=== PATIENT | female | born 2000 | race Two or more races ===

== ENCOUNTER 2022-09-19 04:28 | Emergency (ER) | payer MEDICAID ==
[~2022-09-19] VITALS: Ht 165.1 cm; Wt 102.0 kg
[2022-09-19 06:14] LABS: Urine Bacteria FEW /hpf (None Seen); Urine Blood Negative /uL (Negative); Urine Hyaline Cast FEW /lpf (0 - 2); Urine Mucus FEW (None Seen); Urine Specific Gravity 1.034 (1.001-1.035); Urine WBC 6 /hpf (0 - 5)
[2022-09-19] MEDS ORDERED: KETOROLAC TROMETH 60MG/2ML VIAL IM ONE (06:45)
[2022-09-19 07:14] VITALS: BP 102/60
[2022-09-19] MEDS ORDERED: BACDST PO (07:48)
[2022-09-19] MEDS ORDERED: TRAM-297 PO (07:48)
== END 2022-09-19 07:57 | disposition home or self-care (01) ==
LOC: ER 04:28
DX: N83.202 Unspecified ovarian cyst, left side (principal); N83.201 Unspecified ovarian cyst, right side; N39.0 Urinary tract infection, site not specified; J45.909 Unspecified asthma, uncomplicated; Z79.899 Other long term (current) drug therapy; Z88.8 Allergy status to other drugs, medicaments and biological substances
CPT/HCPCS: 76856; 81001; 81025; 96372; 99284; J1885

== ENCOUNTER 2023-02-16 13:53 | Emergency (ER) | payer MEDICAID ==
[~2023-02-16] VITALS: Ht 165.1 cm; Wt 102.5 kg
[~2023-02-16 13:53] MED LIST: BACDST PO; TRAM-297 PO
[2023-02-16 14:28] LABS: Urine Bacteria NONE SEEN /hpf (None Seen); Urine Blood 2+ /uL (Negative); Urine Mucus MANY (None Seen); Urine WBC 3 /hpf (0 - 5)
[2023-02-16 14:42] LABS: Basophils # (auto) 0 10 ^3/uL (0-0.2); Basophils % (auto) 0.8 % (0.0-2.0); Eosinophils # (auto) 0.1 10 ^3/uL (0-0.8); Eosinophils % (auto) 1.7 % (0.0-7.0); Hematocrit 43.4 % (36.0-46.0); Hemoglobin 14.5 g/dL (12.2-16.2); Lymphocytes # (auto) 1.8 10 ^3/uL (0.4-5.4); Lymphocytes % (auto) 29.1 % (10.0-50.0); Mean Corpuscular Hemoglobin 28.6 pg (28.0-32.0); Mean Corpuscular Hgb Conc. 33.5 g/dL (32.0-36.0); Mean Corpuscular Volume 85.5 fL (80.0-100.0); Monocytes # (auto) 0.3 10 ^3/uL (0-1.3); Monocytes % (auto) 4.6 % (0.0-12.0); Neutrophils # (auto) 3.9 10 ^3/uL (1.6-8.6); Neutrophils % (auto) 63.8 % (37.0-80.0); Red Blood Cells 5.07 10^6/uL (4.0-5.20); Red Cell Distribution Width 13.3 % (11.8-14.3); White Blood Cell 6.2 10^3/uL (4.4-10.8)
[2023-02-16 15:02] LABS: Albumin 3.5 g/dL (3.4-5.0); Calcium 8.7 mg/dL (8.5-10.1); Potassium 3.9 mmol/L (3.5-5.1)
[2023-02-16 15:07] LABS: BUN/Creatinine Ratio 7.6 (10.0-20.0); Bilirubin, Total 0.5 mg/dL (0.2-1.0)
[2023-02-16] MEDS ORDERED: ONDANSETRON ODT 4 MG TAB PO ONE (19:00)
[2023-02-16] MEDS ORDERED: MORPHINE SULFATE INJ 2 MG/ml SYRG IM ONE (19:00)
[2023-02-16] MEDS ORDERED: ACE3T PO (19:09)
[2023-02-16] MEDS ORDERED: MORPHINE SULFATE 4 MG/ML SYR/VIAL ONE (19:36)
[2023-02-16 20:23] VITALS: BP 109/73
== END 2023-02-16 20:31 | disposition home or self-care (01) ==
LOC: ER 13:53
DX: N83.202 Unspecified ovarian cyst, left side (principal); N83.201 Unspecified ovarian cyst, right side; J45.909 Unspecified asthma, uncomplicated; Z88.6 Allergy status to analgesic agent
CPT/HCPCS: 36415; 76856; 80053; 81001; 81025; 85025; 96372; 99285; J2270; Q0162

== ENCOUNTER 2023-03-05 01:01 | Inpatient (IN) | payer MEDICAID ==
[~2023-03-05] VITALS: Ht 165.1 cm; Wt 106.9 kg
[~2023-03-05 01:01] MED LIST changes: +ACE3T PO
[2023-03-05] MEDS ORDERED: HYDROmorphone HCL 2 MG/ML VL/or syr IM ONE (02:00)
[2023-03-05 02:20] LABS: Basophils # (auto) 0.1 10 ^3/uL (0-0.2); Basophils % (auto) 0.4 % (0.0-2.0); Eosinophils # (auto) 0.1 10 ^3/uL (0-0.8); Eosinophils % (auto) 0.4 % (0.0-7.0); Hematocrit 42.6 % (36.0-46.0); Hemoglobin 14.7 g/dL (12.2-16.2); Lymphocytes # (auto) 1.5 10 ^3/uL (0.4-5.4); Lymphocytes % (auto) 11.6 % (10.0-50.0); Mean Corpuscular Hemoglobin 29.2 pg (28.0-32.0); Mean Corpuscular Hgb Conc. 34.4 g/dL (32.0-36.0); Monocytes # (auto) 0.5 10 ^3/uL (0-1.3); Monocytes % (auto) 3.6 % (0.0-12.0); Neutrophils # (auto) 10.8 10 ^3/uL (1.6-8.6); Red Blood Cells 5.02 10^6/uL (4.0-5.20); White Blood Cell 12.8 10^3/uL (4.4-10.8)
[2023-03-05 02:29] LABS: Albumin 3.7 g/dL (3.4-5.0); Calcium 9.1 mg/dL (8.5-10.1); Potassium 3.7 mmol/L (3.5-5.1)
[2023-03-05 02:32] LABS: BUN/Creatinine Ratio 10.8 (10.0-20.0); Bilirubin, Total 0.3 mg/dL (0.2-1.0); Total Protein 7.4 g/dL (6.4-8.2)
[2023-03-05] MEDS ORDERED: ONDANSETRON HCL 4 MG/2 ML VIAL IV ONE ×2 (04:45→10:55)
[2023-03-05] MEDS ORDERED: MORPHINE SULFATE 4 MG/ML SYR/VIAL IV ONE ×2 (04:45→09:15)
[2023-03-05 05:12] LABS: Urine Amorphous Crystal MANY /hpf (None Seen); Urine Bacteria FEW /hpf (None Seen); Urine Blood Negative /uL (Negative); Urine Mucus FEW (None Seen); Urine Specific Gravity 1.028 (1.001-1.035); Urine WBC 2 /hpf (0 - 5)
[2023-03-05] MEDS ORDERED: METOCLOPRAMIDE HCL 5MG/ml INJ 2ml VIAL IV ONE (05:45)
[2023-03-05] MEDS ORDERED: HYDROmorphone HCL 2 MG/ML VL/or syr IV ONE (05:45)
[2023-03-05 06:23] LABS: INR 0.97 (0.9-1.15)
[2023-03-05] MEDS ORDERED: ceFAZolin 1GM/50ML 100 ML IV ONE (10:17)
[2023-03-05] MEDS ORDERED: ceFAZolin 1GM/50ML 50 ML IV ONE (10:21)
[2023-03-05] MEDS ORDERED: fentaNYL CITRATE 100 MCG/2 ML VL ONE (10:27)
[2023-03-05] MEDS ORDERED: MEPERIDINE HCL (50 MG/ML) 1 ML VIAL ONE (10:27)
[2023-03-05] MEDS ORDERED: MIDAZOLAM HCL 2MG/2ML 2ml VIAL (1mg/ml) ONE (10:27)
[2023-03-05] MEDS ORDERED: DexAMETHasone SOD PHOS 10MG/1ML VIAL INJ ONE (10:38)
[2023-03-05] MEDS ORDERED: PROPOFOL 10 MG/ML 20 ML IV ONE (10:40)
[2023-03-05] MEDS ORDERED: ROCURONIUM 10MG/ML 10ML VIAL IV ONE (10:42)
[2023-03-05] MEDS ORDERED: MORPHINE SULFATE 4 MG/ML SYR/VIAL IV PRN (11:00)
[2023-03-05] MEDS ORDERED: MIDAZOLAM HCL 2MG/2ML 2ml VIAL (1mg/ml) IV PRN (11:00)
[2023-03-05] MEDS ORDERED: ePHEDrine SULFATE 50 MG/ML AMP IV PRN (11:00)
[2023-03-05] MEDS ORDERED: ONDANSETRON HCL 4 MG/2 ML VIAL IV PRN (11:00)
[2023-03-05] MEDS ORDERED: LABETALOL HCL 5 MG/ML 4ML SYRINGE IV PRN (11:00)
[2023-03-05] MEDS ORDERED: SUGAMMADEX 200mg/2ml Vial (100MG/ML) IV ONE (11:55)
[2023-03-05] MEDS ORDERED: ACETAMINOPHEN 500 MG TAB PO PRN (12:00)
[2023-03-05] MEDS: HYDROmorphone HCL 2 MG/ML VL/or syr IV PRN ×4 (12:22→21:47)
[2023-03-05] MEDS ORDERED: ALBUTEROL SULF 2.5 MG/0.5ML(0.5%) NEB SOLN ONE (12:25)
[2023-03-05] MEDS ORDERED: ALBUTEROL SULF 2.5 MG/0.5ML(0.5%) NEB SOLN NEB ONE (12:30)
[2023-03-05] MEDS ORDERED: MEPERIDINE HCL (25 MG/ML) 1ML VIAL IV ONE (12:45)
[2023-03-05 14:30] VITALS: BP 113/57
[2023-03-05 14:54] LABS: Basophils # (auto) 0.1 10 ^3/uL (0-0.2); Basophils % (auto) 0.4 % (0.0-2.0); Eosinophils # (auto) 0.1 10 ^3/uL (0-0.8); Eosinophils % (auto) 0.4 % (0.0-7.0); Hematocrit 41.8 % (36.0-46.0); Hemoglobin 14.1 g/dL (12.2-16.2); Lymphocytes # (auto) 0.5 10 ^3/uL (0.4-5.4); Lymphocytes % (auto) 2.4 % (10.0-50.0); Mean Corpuscular Hemoglobin 28.5 pg (28.0-32.0); Mean Corpuscular Hgb Conc. 33.7 g/dL (32.0-36.0); Mean Corpuscular Volume 84.5 fL (80.0-100.0); Monocytes # (auto) 0.4 10 ^3/uL (0-1.3); Neutrophils # (auto) 18.4 10 ^3/uL (1.6-8.6); Neutrophils % (auto) 94.8 % (37.0-80.0); Nucleated Red Blood Cells % 0.1 %; Red Blood Cells 4.95 10^6/uL (4.0-5.20); Red Cell Distribution Width 13.1 % (11.8-14.3); White Blood Cell 19.4 10^3/uL (4.4-10.8)
[2023-03-05] MEDS ORDERED: DOCU-94 PO (15:09)
[2023-03-05] MEDS ORDERED: HYDR-4902 PO (15:09)
[2023-03-05] MEDS ORDERED: CEPH500T PO (15:09)
[2023-03-05 16:00] VITALS: BP 112/59
[2023-03-05] MEDS: LACTATED RINGER'S 1,000 ML IV SCH ×2 (18:36→18:37)
[2023-03-05] MEDS: ceFAZolin 1GM/50ML 50 ML IV SCH (18:37)
[2023-03-05 20:00] VITALS: BP 116/60
[2023-03-05 20:08] LABS: Basophils # (auto) 0 10 ^3/uL (0-0.2); Basophils % (auto) 0.1 % (0.0-2.0); Eosinophils # (auto) 0 10 ^3/uL (0-0.8); Hematocrit 42.1 % (36.0-46.0); Hemoglobin 13.8 g/dL (12.2-16.2); Lymphocytes # (auto) 0.6 10 ^3/uL (0.4-5.4); Lymphocytes % (auto) 3.5 % (10.0-50.0); Mean Corpuscular Hemoglobin 27.9 pg (28.0-32.0); Mean Corpuscular Hgb Conc. 32.8 g/dL (32.0-36.0); Mean Corpuscular Volume 84.9 fL (80.0-100.0); Monocytes # (auto) 0.5 10 ^3/uL (0-1.3); Monocytes % (auto) 3.2 % (0.0-12.0); Neutrophils # (auto) 15.4 10 ^3/uL (1.6-8.6); Neutrophils % (auto) 93.2 % (37.0-80.0); Nucleated Red Blood Cells % 0.2 %; Red Blood Cells 4.96 10^6/uL (4.0-5.20); Red Cell Distribution Width 13.1 % (11.8-14.3); White Blood Cell 16.6 10^3/uL (4.4-10.8)
[2023-03-05 22:00] VITALS: BP_SYST 116; BP_SYST 118; BP_DIAS 52; BP_DIAS 60
[2023-03-05] MEDS: ONDANSETRON HCL 4 MG/2 ML VIAL IV PRN (22:01)
[2023-03-06] MEDS: LACTATED RINGER'S 1,000 ML IV SCH ×3 (01:20→18:36)
[2023-03-06] MEDS: ONDANSETRON HCL 4 MG/2 ML VIAL IV PRN ×5 (01:56→22:53)
[2023-03-06] MEDS: HYDROmorphone HCL 2 MG/ML VL/or syr IV PRN ×2 (02:15→05:27)
[2023-03-06] MEDS: ceFAZolin 1GM/50ML 50 ML IV SCH ×3 (02:15→17:13)
[2023-03-06 05:19] LABS: Basophils # (auto) 0 10 ^3/uL (0-0.2); Basophils % (auto) 0.1 % (0.0-2.0); Eosinophils # (auto) 0 10 ^3/uL (0-0.8); Hematocrit 40.2 % (36.0-46.0); Hemoglobin 13.6 g/dL (12.2-16.2); Lymphocytes # (auto) 1.4 10 ^3/uL (0.4-5.4); Lymphocytes % (auto) 10.4 % (10.0-50.0); Mean Corpuscular Hemoglobin 28.9 pg (28.0-32.0); Mean Corpuscular Hgb Conc. 33.8 g/dL (32.0-36.0); Mean Corpuscular Volume 85.4 fL (80.0-100.0); Monocytes # (auto) 0.9 10 ^3/uL (0-1.3); Monocytes % (auto) 6.7 % (0.0-12.0); Neutrophils # (auto) 11.3 10 ^3/uL (1.6-8.6); Neutrophils % (auto) 82.8 % (37.0-80.0); Red Blood Cells 4.71 10^6/uL (4.0-5.20); Red Cell Distribution Width 13.1 % (11.8-14.3); White Blood Cell 13.6 10^3/uL (4.4-10.8)
[2023-03-06] MEDS ORDERED: LACTATED RINGER'S 1,000 ML IV SCH (06:45)
[2023-03-06 08:00] VITALS: BP 104/50
[2023-03-06] MEDS: DOCUSATE SOD 100 MG CAP PO SCH ×2 (08:35→21:50)
[2023-03-06 08:39] VITALS: BP 104/50
[2023-03-06] MEDS: HYDROcodone-ACET 10/325MG TAB PO PRN ×4 (09:46→22:52)
[2023-03-06] MEDS ORDERED: BISACODYL 5 MG EC TAB PO PRN (12:00)
[2023-03-06 13:00] VITALS: BP 112/60
[2023-03-06 17:00] VITALS: BP 100/53
[2023-03-06 20:00] VITALS: BP 97/36
[2023-03-06 22:00] VITALS: BP 97/36
[2023-03-07] VITALS (7 sets, daily range): BP systolic 88–108; BP diastolic 36–63
[2023-03-07] MEDS: ceFAZolin 1GM/50ML 50 ML IV SCH ×3 (02:03→17:35)
[2023-03-07] MEDS: HYDROcodone-ACET 10/325MG TAB PO PRN ×4 (05:52→21:21)
[2023-03-07] MEDS: ONDANSETRON HCL 4 MG/2 ML VIAL IV PRN ×4 (05:53→21:22)
[2023-03-07] MEDS: IPRATROPIUM BROM 0.5 MG/2.5ML INH SOL NEB PRN ×2 (06:01→21:19)
[2023-03-07] MEDS: ALBUTEROL SULF 2.5 MG/0.5ML(0.5%) NEB SOLN NEB PRN ×2 (06:01→21:19)
[2023-03-07] MEDS ORDERED: FUROSEMIDE 20 MG/2 ML VIAL IV ONE (08:00)
[2023-03-07] MEDS ORDERED: FUROSEMIDE 20 MG TAB ONE ×2 (08:07→08:08)
[2023-03-07] MEDS ORDERED: FUROSEMIDE 20 MG TAB PO ONE (08:15)
[2023-03-07] MEDS: DOCUSATE SOD 100 MG CAP PO SCH ×2 (09:34→21:35)
[2023-03-07] MEDS: SIMETHICONE 80 MG CHEWABLE TABLET PO SCH ×4 (09:34→21:35)
[2023-03-07] MEDS ORDERED: KETOROLAC TROMETH 30 MG/ML 1ML VIAL IV ONE (19:00)
[2023-03-08] MEDS: ceFAZolin 1GM/50ML 50 ML IV SCH ×3 (01:48→17:30)
[2023-03-08] MEDS: ONDANSETRON HCL 4 MG/2 ML VIAL IV PRN ×4 (03:55→21:34)
[2023-03-08] MEDS: HYDROcodone-ACET 10/325MG TAB PO PRN ×4 (03:56→21:33)
[2023-03-08] MEDS: LACTATED RINGER'S 1,000 ML IV SCH (04:02)
[2023-03-08 05:00] VITALS: BP 90/39
[2023-03-08] MEDS: SIMETHICONE 80 MG CHEWABLE TABLET PO SCH ×4 (05:23→21:33)
[2023-03-08 06:15] VITALS: BP 102/55
[2023-03-08 09:00] VITALS: BP 93/54
[2023-03-08] MEDS: DOCUSATE SOD 100 MG CAP PO SCH ×2 (09:32→21:33)
[2023-03-08 13:00] VITALS: BP 108/54
[2023-03-08 17:00] VITALS: BP 96/47
[2023-03-08 22:00] VITALS: BP 108/51
[2023-03-09] MEDS: ceFAZolin 1GM/50ML 50 ML IV SCH ×2 (02:40→09:25)
[2023-03-09 05:00] VITALS: BP 117/59
[2023-03-09] MEDS: SIMETHICONE 80 MG CHEWABLE TABLET PO SCH (05:19)
[2023-03-09] MEDS: HYDROcodone-ACET 10/325MG TAB PO PRN ×2 (05:36→10:36)
[2023-03-09] MEDS ORDERED: ONDA-144 PO (07:30)
[2023-03-09 09:00] VITALS: BP 94/43
[2023-03-09] MEDS: DOCUSATE SOD 100 MG CAP PO SCH (09:26)
== END 2023-03-09 11:10 | disposition home or self-care (01) | DRG 513 ==
LOC: ER 01:01 → OVERFLOW 12:01 → TELE-CENTR 14:05
PROVIDERS: ADMIT Obstetrics & Gynecology; ATTEND Obstetrics & Gynecology
PROC: 0UT10ZZ Resection of Left Ovary, Open Approach (ICD-10-PCS; 2023-03-05)
PROC: 0UT60ZZ Resection of Left Fallopian Tube, Open Approach (ICD-10-PCS; principal; 2023-03-05 10:29)
DX: N83.512 Torsion of left ovary and ovarian pedicle (principal); N83.202 Unspecified ovarian cyst, left side; Z88.8 Allergy status to other drugs, medicaments and biological substances
CPT/HCPCS: 36415; 74176; 76817; 76856; 80053; 81001; 81025; 84702; 85025; 85610; 86850; 86900; 86901; 94640; 96372; 96374; 96375; 99291; G0378; J0690; J1100; J2250; J2405; J2704

== ENCOUNTER 2024-08-25 23:24 | Emergency (ER) | payer MEDICAID ==
[~2024-08-25] VITALS: Ht 165.1 cm; Wt 95.2 kg
[~2024-08-25 23:24] MED LIST changes: +CEPH500T PO; +DOCU-94 PO; +HYDR-4902 PO; +ONDA-144 PO; +PANT40TA2 PO
[2024-08-26] MEDS: SODIUM CHLORIDE 0.9% 1,000 ML IV ONE (00:39)
[2024-08-26 01:00] LABS: Urine Bacteria None Seen /hpf (None Seen)
[2024-08-26] MEDS: METOCLOPRAMIDE HCL 5MG/ml INJ 2ml VIAL IV ONE (01:03)
[2024-08-26] MEDS: ACETAMINOPHEN IV 1000 MG/100ML (10MG/ML) IV STA (01:03)
[2024-08-26 01:11] VITALS: RESP 16; TEMP 99.2; O2SAT 99
[2024-08-26 01:12] LABS: Urine Blood 3+ /uL (Negative); Urine Budding Yeast OCCASIONAL /hpf (None Seen); Urine Clarity Clear (Clear); Urine Color Light-Yellow (Yellow); Urine Protein, UAD TRACE (Negative); Urine Specific Gravity 1.026 (1.001-1.035); Urine Urobilinogen Normal (Negative); Urine WBC 84 /hpf (0 - 5); Urine WBC Clumps PRESENT /hpf (None Seen)
[2024-08-26 01:14] LABS: Basophils # (auto) 0.1 10 ^3/uL (0-0.2); Basophils % (auto) 0.5 % (0.0-2.0); Eosinophils # (auto) 0.2 10 ^3/uL (0-0.8); Eosinophils % (auto) 1.7 % (0.0-7.0); Hematocrit 40.3 % (36.0-46.0); Hemoglobin 13.6 g/dL (12.2-16.2); Lymphocytes # (auto) 1.3 10 ^3/uL (0.4-5.4); Mean Corpuscular Hemoglobin 29.5 pg (28.0-32.0); Mean Corpuscular Hgb Conc. 33.9 g/dL (32.0-36.0); Mean Corpuscular Volume 87.3 fL (80.0-100.0); Monocytes # (auto) 0.5 10 ^3/uL (0-1.3); Monocytes % (auto) 5.4 % (0.0-12.0); Neutrophils % (auto) 79.4 % (37.0-80.0); Nucleated Red Blood Cells % 0.1 %; Platelet Count (auto) 293 10^3/uL (140-450); Red Blood Cells 4.62 10^6/uL (4.0-5.20); Red Cell Distribution Width 13.1 % (11.8-14.3)
[2024-08-26 01:16] LABS: Chloride 106 mmol/L (98-107); Potassium 3.8 mmol/L (3.5-5.1); Sodium 139 mmol/L (136-145)
[2024-08-26 01:18] LABS: Anion Gap 8 (5-15); Calcium 9.3 mg/dL (8.7-10.4); Carbon Dioxide 25 mmol/L (20-31)
[2024-08-26 01:23] LABS: BUN/Creatinine Ratio 15.7 (10.0-20.0); Blood Urea Nitrogen 11 mg/dL (9-23); Glucose 95 mg/dL (74-106)
[2024-08-26 01:42] VITALS: BP 99/53; PULSE 83
[2024-08-26 01:56] LABS: COVID19 ANTIGEN SOFIA FIA NEGATIVE (NEGATIVE); Rapid Influenza A Negative (Negative); Rapid Influenza B Negative (Negative)
== END 2024-08-26 01:46 | disposition home or self-care (01) ==
LOC: ER 23:24
DX: O90.89 Other complications of the puerperium, not elsewhere classified (principal); B34.9 Viral infection, unspecified; J45.909 Unspecified asthma, uncomplicated; Z79.899 Other long term (current) drug therapy; Z88.8 Allergy status to other drugs, medicaments and biological substances; Z20.822 Contact with and (suspected) exposure to COVID-19
CPT/HCPCS: 36415; 80048; 81001; 85025; 87426; 87804; 96361; 96374; 96375; 99284; J2765; J7030; J0131

== ENCOUNTER 2025-04-26 17:00 | Emergency (ER) | payer MEDICAID ==
[~2025-04-26] VITALS: Ht 165.1 cm; Wt 110.0 kg
--- NOTE | 2025-04-26 17:18 | ED.PDOC ---
General HPI Comments This is a 24 year old female presenting to the ED with chief complaint of flank pain. Patient reports that she has been experiencing right sided flank pain with associated radiation to her pelvic region and nausea for the past 3 days. Patient relays that she previously had her right ovary removed. Patient denies any vomiting, diarrhea, dysuria, hematuria, abdominal pain, fever, or chills. Time Seen by MD: 17:15 Primary Care Provider: GRISEL Reviewed notes: Nurses Notes, Medications, Allergies Allergies: Coded Allergies: Ibuprofen (Verified Allergy, Unknown, 09/19/22) Home Meds Active Scripts Ciprofloxacin Hcl (Cipro) 500 Mg Tab, 1 TAB PO BID, #14 TAB Prov:WINDY GOMEZ MD 04/26/25 Pantoprazole Sodium Sesquihydr (Protonix) 40 Mg Tab, 40 MG PO DAILY, #30 TAB Prov:LARRY SOL DO 03/19/23 Ondansetron (Zofran) 4 Mg Tab, 4 MG PO Q4HPRN PRN, #30 TAB Prov:MARC MUHAMMAD 03/09/23 Hydrocodone-Acetaminophen (Hydrocodone Bitartrate/AC 5-325 mg) 1 Tab Tab, 1 TAB PO Q6HPRN PRN for 6 Days, #24 TAB Prov:MARC MUHAMMAD 03/05/23 Docusate Sodium (Colace) 100 Mg Cap, 1 CAP PO BID, #60 CAP 2 Refills Prov:MARC MUHAMMAD 03/05/23 Cephalexin Monohydrate (Cephalexin) 500 Mg Tab, 500 MG PO QID for 7 Days, #28 TAB Prov:MARC MUHAMMAD 03/05/23 Acetaminophen W/ Codeine (Tylenol W/Cod #3) 1 Tab Tb, 1 TAB PO TID PRN, #20 TAB Prov:LAYNE VALLE 02/16/23 Tramadol Hcl (Ultram) 50 Mg Tab, 1 TAB PO Q6HR, #20 TAB Prov:TAY MULLIGAN 09/19/22 Sulfamethoxazole W/Trimethopri (Bactrim Ds Tablet) 1 Tab Tb, 1 TAB PO BID for 7 Days, #14 TAB Prov:TAY MULLIGAN 09/19/22 Information Source: Patient Mode of Arrival: Ambulatory Severity: Moderate Timing: Days Duration: Since onset Prehospital treatment: None Onset: Spontaneous Symptoms: Other (Flank pain, nausea) History of: None Location: Suprapubic, (R) Flank associated signs and symptoms: Nausea, Flank Pain Past Medical History PAST MEDICAL HISTORY: Asthma Surgical History (Other): Right oophorectomy, ovarian cyst removal MEDICAL DONATION PROFESSIONAL History: Ovarian Cysts Family History Family History: Reviewed,noncontributory to illness Social History Smoker: Non-Smoker Alcohol: Denies ETOH Use Drugs: Denies Drug Use Lives In: Home Constitutional: denies: chills, diaphoresis, fatigue, fever, malaise, sweats, weakness, others EENTM: denies: blurred vision, double vision, ear bleeding, ear discharge, ear drainage, ear pain, ear ringing, eye pain, eye redness, hearing loss, mouth pain, mouth swelling, nasal discharge, nose bleeding, nose congestion, nose pain, photophobia, tearing, throat pain, throat swelling, voice changes, others Respiratory: denies: cough, hemoptysis, orthopnea, SOB at rest, shortness of breath, SOB with excertion, stridor, wheezing, others Cardiovascular: denies: chest pain, dizzy spells, diaphoresis, Dyspnea on exertion, edema, irregular heart beat, left arm pain, lightheadedness, palpitations, PND, syncope, others Gastrointestinal: reports: nausea; denies: abdomen distended, abdominal pain, blood streaked bowels, constipated, diarrhea, dysphagia, difficulty swallowing, hematemesis, melena, poor appetite, poor fluid intake, rectal bleeding, rectal pain, vomiting, others Genitourinary: reports: flank pain; denies: abnormal vagina bleeding, burning, dyspareunia, dysuria, frequency, hematuria, incontinence, pain, , vagina discharge, urgency, others Neurological: denies: dizziness, fainting, headache, left sided numbness, left sided weakness, numbness, paresthesia, pre-existing deficit, right sided numbness, right sided weakness, seizure, speech problems, tingling, tremors, weakness, others Musculoskeletal: denies: back pain, gout, joint pain, joint swelling, muscle pain, muscle stiffness, neck pain, others Integumetry: denies: bruises, change in color, change in hair/nails, dryness, laceration, lesions, lumps, rash, wounds, others Allergic/Immunocompromised: denies: Difficulty Healing, Frequent Infections, Hives, Itching, others Hematologic/Lymphatic: denies: anemia, blood clots, easy bleeding, easy bruising, swollen glands, others Endocrine: denies: excessive hunger, excessive sweating, excessive thirst, excessive urination, flushing, intolerance to cold, intolerance to heat, unexplained weight gain, unexplained weight loss, others Psychiatric: denies: anxiety, bipolar disorder, depression, hopeless, panic disorder, schizophrenia, sleepless, suicidal, others All Other Systems: Reviewed and Negative Physical Exam General Appearance: No Apparent Distress HEENT: Normal ENT Inspection, Pharynx Normal, TMs Normal Neck: Full Range of Motion, Non-Tender, Normal, Normal Inspection Respiratory: Chest Non-Tender, Lungs Clear, No Accessory Muscle Use, No Respiratory Distress, Normal Breath Sounds Cardiovascular: No Edema, No JVD, No Murmur, No Gallop, Normal Peripheral Pulses, Regular Rate/Rhythm Breast Exam: Deferred Gastrointestinal: No Organomegaly, Non Tender, No Pulsatile Mass, Normal Bowel Sounds, Soft Genitalia: Deferred Pelvic: Deferred Rectal: Deferred Extremities: No calf tenderness, Normal capillary refill, Normal inspection, Normal range of motion, Non-tender, No pedal edema Musculoskeletal : Location: Right Extremity Location: Back Apperance: Tenderness: Mild Neurologic: Alert, market director II-XII nml as Tested, No Motor Deficits, Normal Affect, Normal Mood, No Sensory Deficits Cerebellar Function: Normal Reflexes: Normal Skin: Dry, Normal Color, Warm Lymphatic: No Adenopathy Was a procedure done? Was a procedure done?: No Differential Diagnosis Kidney stone (Female): Musculoskeletal pain, Renal failure, Strain, Urolithiasis X-Ray, Labs, Meds, VS Vital Signs Date Time Temp Pulse Resp B/P (MAP) Pulse Ox O2 Delivery O2 Flow Rate FiO2 04/26/25 17:23 98.5 64 16 113/73 (86) 97 98.5 Lab Test 04/26/25 18:07 Range/Units Urine Color Yellow Yellow Urine Clarity Turbid H Clear Urine pH 5.5 5.0-9.0 Urine Specific [place] 1.030 1.001-1.035 Urine Protein Trace H Negative Urine Ketones Negative Negative Urine Blood Negative Negative /uL Urine Nitrite Negative Negative Urine Bilirubin Negative Negative Urine Urobilinogen Normal Negative mg/dL Urine Leukocyte Esterase 2+ Negative /uL Urine RBC 4 0 - 4 /hpf Urine Microscopic WBC 9 H 0-5 /HPF Urine Squamous Epithelial Cells Mod <5 /hpf Urine Bacteria None seen None Seen /hpf Urine Mucus Few None Seen Urine Glucose Normal Normal mg/dL Urine Test Negative Negative CAT scan of the abdomen and pelvis shows: IMPRESSION: 1. The liver demonstrates cirrhotic morphology. There is large amount of ascites. 2. Moderate amount of stool in the colon. The urine test is positive for UTI The patient will return to the emergency department's the condition worsens The patient understands and agrees with the management. The patient was given a prescription of Cipro Images Reviewed?: Images reviewed and evaluated by me Time of 1ST Reevaluation: 20:20 Reevaluation 1ST: Improved Patient Education/Counseling: Diagnosis, Treatment, Prognosis, Need For Follow Up Family Education/Counseling: No Family Present Additional Information Reviewed patient's previous visit(s): 08/25/24 for viral syndrome The following tests were ordered, and results were reviewed by me: Additional information was gathered from interviewing the following independent historian: NONE I reviewed and agreed with the following test results read by other provider: NONE I discussed treatments and results with medical personnel and: Patient Comprehensive systems review obtained and negative except for what is stated in the HPI. Departure 1 Departure Time of Disposition: 20:19 Impression: Primary Impression: Acute UTI Additional Impression: Flank pain Disposition: 01 HOME / SELF CARE / HOMELESS Condition: Fair e-Prescriptions Ciprofloxacin Hcl (Cipro) 500 Mg Tab 1 TAB PO BID, #14 TAB Prov: WINDY GOMEZ MD 04/26/25 Discharged With: Self Critical Care Note Critical Care Time?: No Stability Stability form required: No Heart Score Heart Score: Heart Score Response (Comments) Value History N/A 0 EKG N/A 0 Age N/A 0 Risk Factors N/A 0 Troponin N/A 0 Total 0 I personally scribed for WINDY GOMEZ MD ([email or web address]) on 04/26/25 at 17:18. Electronically submitted by Wil Edmond ([email or web address]). WINDY GOMEZ MD Apr 26, 2025 17:18
[2025-04-26 18:08] LABS: Urine Bacteria None Seen /hpf (None Seen)
[2025-04-26 18:21] LABS: Urine Blood Negative /uL (Negative); Urine Clarity Turbid (Clear); Urine Color Yellow (Yellow); Urine Mucus FEW (None Seen); Urine Protein, UAD TRACE (Negative); Urine Squamous Epithelial Cell MOD /hpf (<5); Urine Urobilinogen Normal (Negative); Urine WBC 9 /HPF (0-5); Urine pH 5.5 (5.0-9.0)
--- NOTE | 2025-04-26 20:15 | DVH ---
CT SCAN ABDOMEN AND PELVIS WITHOUT CONTRAST CLINICAL HISTORY: pain right flank TECHNIQUE: Helical axial images are obtained from the lung bases through the pelvis without oral cont rast. No intravenous contrast was administered. Coronal and sagittal reformatted images were generate d from thin section reconstructions. One or more of the following radiation dose reduction techniques were used for this examination: automated exposure control, adjustment of the mA and/or kV according to patient size, use of iterative reconstruction technique. COMPARISON: CT CT AB PEL WO CON-NO ORAL OR IV on DOS: 03/05/23 FINDINGS: LOWER THORAX: Imaged lung bases are grossly clear. ABDOMEN AND PELVIS: Evaluation of visceral and vascular structures is limited due to lack of contrast administration. As visualized, the unenhanced liver, spleen, pancreas and adrenals appear grossly unremarkable. No si zable, radiopaque cholelithiasis or biliary ductal dilatation. No hydroureteronephrosis or sizable, obstructing urinary tract calculi identified. No evidence of abdominal aortic aneurysm. No evidence of bowel obstruction. Visualized appendix is normal caliber. No free intraperitoneal air or fluid identified. No sizable bladder calculus in the underdistended bladder. Left adnexal surgical clips. No destructive osseous lesions identified. IMPRESSION: No bowel obstruction, free intraperitoneal air/ fluid or sizable inflammatory collections identified on this noncontrast examination.
[2025-04-26] MEDS ORDERED: CIPR-173 PO (20:19)
[2025-04-26 20:32] VITALS: BP 136/76; TEMP 98.5
[2025-04-26 21:01] VITALS: PULSE 72; RESP 16; O2SAT 98
== END 2025-04-26 21:05 | disposition home or self-care (01) ==
LOC: ER 17:01
DX: N39.0 Urinary tract infection, site not specified (principal); R10.31 Right lower quadrant pain; J45.909 Unspecified asthma, uncomplicated; Z79.899 Other long term (current) drug therapy; Z98.890 Other specified postprocedural states; Z90.721 Acquired absence of ovaries, unilateral; Z88.6 Allergy status to analgesic agent
CPT/HCPCS: 74176; 81001; 81025

== ENCOUNTER 2025-06-24 10:32 | Emergency (ER) | payer MEDICAID ==
[~2025-06-24] VITALS: Ht 165.1 cm; Wt 105.0 kg
[~2025-06-24 10:32] MED LIST changes: +CIPR-173 PO
--- NOTE | 2025-06-24 10:45 | ED.PDOC ---
Eye-HPI HPI Comments 24 y/o F, presents to the ED for CC of sore-throat. Patient states, she has been experiencing symptoms of sore-throat x3days. Patient comments, "it feels like saliva is stuck in my throat". Patient denies cough, shortness of breath, pain when swallowing, fever, or chills. No other symptoms or modifying factors are present at this time. Chief Complaint: Sore Throat Time Seen by MD: 10:45 Primary Care Provider: UNKNOWN Reviewed Notes: Nurses Notes, Medications, Allergies Allergies: Coded Allergies: Ibuprofen (Verified Allergy, Unknown, 09/19/22) Home Meds Active Scripts Ciprofloxacin Hcl (Cipro) 500 Mg Tab, 1 TAB PO BID, #14 TAB Prov:WINDY GOMEZ MD 04/26/25 Pantoprazole Sodium Sesquihydr (Protonix) 40 Mg Tab, 40 MG PO DAILY, #30 TAB Prov:LARRY SOL DO 03/19/23 Ondansetron (Zofran) 4 Mg Tab, 4 MG PO Q4HPRN PRN, #30 TAB Prov:MARC MUHAMMAD 03/09/23 Hydrocodone-Acetaminophen (Hydrocodone Bitartrate/AC 5-325 mg) 1 Tab Tab, 1 TAB PO Q6HPRN PRN for 6 Days, #24 TAB Prov:MARC MUHAMMAD 03/05/23 Docusate Sodium (Colace) 100 Mg Cap, 1 CAP PO BID, #60 CAP 2 Refills Prov:MARC MUHAMMAD 03/05/23 Cephalexin Monohydrate (Cephalexin) 500 Mg Tab, 500 MG PO QID for 7 Days, #28 TAB Prov:MARC MUHAMMAD 03/05/23 Acetaminophen W/ Codeine (Tylenol W/Cod #3) 1 Tab Tb, 1 TAB PO TID PRN, #20 TAB Prov:LAYNE VALLE 02/16/23 Tramadol Hcl (Ultram) 50 Mg Tab, 1 TAB PO Q6HR, #20 TAB Prov:TAY MULLIGAN 09/19/22 Sulfamethoxazole W/Trimethopri (Bactrim Ds Tablet) 1 Tab Tb, 1 TAB PO BID for 7 Days, #14 TAB Prov:TAY MULLIGAN 09/19/22 Information Source: Patient Mode of Arrival: Ambulatory Timing: Days Duration: Since onset Prehospital treatment: None Quality: Pain Lids: Normal Conjunctiva: Normal Cornea: Normal Pupils: Normal EOM: Normal Fundus: Normal Slit lamp exam: Normal Anterior chamber: Normal Mouth: Normal ENT Ear Exam: Normal Nose: Normal Sinuses: Normal Oropharynx: Normal Throat Exposed to: None History of: None Last Tetanus: Unknown Associated signs and symptoms: None Past Medical History PAST MEDICAL HISTORY: Asthma SENIOR MATERIALS SCIENTIST History: Ovarian Cysts Family History Family History: Reviewed,noncontributory to illness Social History Smoker: Non-Smoker Alcohol: Denies ETOH Use Drugs: Denies Drug Use Lives In: Home Constitutional: denies: chills, diaphoresis, fatigue, fever, malaise, sweats, weakness, others EENTM: reports: throat pain; denies: blurred vision, double vision, ear bleeding, ear discharge, ear drainage, ear pain, ear ringing, eye pain, eye redness, hearing loss, mouth pain, mouth swelling, nasal discharge, nose bleeding, nose congestion, nose pain, photophobia, tearing, throat swelling, voice changes, others Respiratory: denies: cough, hemoptysis, orthopnea, SOB at rest, shortness of breath, SOB with excertion, stridor, wheezing, others Cardiovascular: denies: chest pain, dizzy spells, diaphoresis, Dyspnea on exertion, edema, irregular heart beat, left arm pain, lightheadedness, palpitations, PND, syncope, others Gastrointestinal: denies: abdomen distended, abdominal pain, blood streaked bowels, constipated, diarrhea, dysphagia, difficulty swallowing, hematemesis, melena, nausea, poor appetite, poor fluid intake, rectal bleeding, rectal pain, vomiting, others Genitourinary: denies: abnormal vagina bleeding, burning, dyspareunia, dysuria, flank pain, frequency, hematuria, incontinence, pain, , vagina discharge , urgency, others Neurological: denies: dizziness, fainting, headache, left sided numbness, left sided weakness, numbness, paresthesia, pre-existing deficit, right sided numbness, right sided weakness, seizure, speech problems, tingling, tremors, weakness, others Musculoskeletal: denies: back pain, gout, joint pain, joint swelling, muscle pain, muscle stiffness, neck pain, others Integumetry: denies: bruises, change in color, change in hair/nails, dryness, laceration, lesions, lumps, rash, wounds, others Allergic/Immunocompromised: denies: Difficulty Healing, Frequent Infections, Hives, Itching, others Hematologic/Lymphatic: denies: anemia, blood clots, easy bleeding, easy bruising, swollen glands, others Endocrine: denies: excessive hunger, excessive sweating, excessive thirst, excessive urination, flushing, intolerance to cold, intolerance to heat, unexplained weight gain, unexplained weight loss, others Psychiatric: denies: anxiety, bipolar disorder, depression, hopeless, panic di sorder, schizophrenia, sleepless, suicidal, others All Other Systems: Reviewed and Negative Physical Exam General Appearance: Moderate Distress HEENT: Pharyngeal Erythema Neck: Full Range of Motion, Non-Tender, Normal, Normal Inspection Respiratory: Chest Non-Tender, Lungs Clear, No Accessory Muscle Use, No Respiratory Distress, Normal Breath Sounds Cardiovascular: No Edema, No JVD, No Murmur, No Gallop, Normal Peripheral Pulses, Regular Rate/Rhythm Breast Exam: Deferred Gastrointestinal: No Organomegaly, Non Tender, No Pulsatile Mass, Normal Bowel Sounds, Soft Genitalia: Deferred Pelvic: Deferred Rectal: Deferred Extremities: No calf tenderness, Normal capillary refill, Normal inspection, Normal range of motion, Non-tender, No pedal edema Musculoskeletal : Apperance: Normal Neurologic: Alert, exhibition designer II-XII nml as Tested, No Motor Deficits, Normal Affect, Normal Mood, No Sensory Deficits Cerebellar Function: Normal Reflexes: Normal Skin: Dry, Normal Color, Warm Peripheral Pulses: 3+ Radial (R), 3+ Radial (L) Lymphatic: No Adenopathy Was a procedure done? Was a procedure done?: No EENT DIFF Eye: Bacterial, Viral Ear: N/A Nose: N/A Mouth: N/A Sore Throat: Epiglottitis, Pharyngitis, URI X-Ray, Labs, Meds, VS Vital Signs Date Time Temp Pulse Resp B/P (MAP) Pulse Ox O2 Delivery O2 Flow Rate FiO2 06/24/25 10:33 97.8 60 16 111/51 96 97.8 Patient alert. Complaining of sore throat. Examination there is redness of the pharynx with the left tonsillar pillar slightly enlarged. Vitals stable. Answering questions. Physical examination otherwise pristine. Ambulating. Was given prescription of amoxicillin antibiotic. Explained to the patient. Was told to follow up with her primary care physician. Was told to come back if there is any problem. Time of 1ST Reevaluation: 11:15 Reevaluation 1ST: Unchanged Patient Education/Counseling: Diagnosis, Treatment Family Education/Counseling: No Family Present SEPSIS Sepsis Screen Date sepsis recognized/suspect: Jun 24, 2025 Time Sepsis recognized/suspect: 1036 Recent Procedure: No On Antibiotic Therapy: No Respiratory Rate >20: No Heart Rate >90: No Temp<36 C (96.8 F) or >38.3 C: No SBP <90 or MAP <65 mmHG: No New Acute Mental Status Change: No Is the patient on CPAP, BIPAP,: No Vital Signs Date Time Temp Pulse Resp B/P (MAP) Pulse Ox O2 Delivery O2 Flow Rate FiO2 06/24/25 10:33 97.8 60 16 111/51 96 97.8 Departure 1 Departure Time of Disposition: 11:32 Impression: Primary Impression: Pharyngitis Qualified Codes: J02.9 - Acute pharyngitis, unspecified Disposition: HOME / SELF CARE / HOMELESS Condition: Good e-Prescriptions Amoxicillin Trihydrate (Amoxicillin) 500 Mg Tab 1 TAB PO TID for 7 Days, #21 TAB Prov: IMELDA LACKEY MD 06/24/25 Discharged With: Self Critical Care Note Critical Care Time?: No Stability Stability form required: No Heart Score Heart Score: Heart Score Response (Comments) Value History N/A 0 EKG N/A 0 Age N/A 0 Risk Factors N/A 0 Troponin N/A 0 Total 0 I personally scribed for IMELDA LACKEY MD ([email or web address]) on 06/24/25 at 10:45. Electronically submitted by Sarahi Pineda ([email or web address]). I personally scribed for IMELDA LACKEY MD ([email or web address]) on 06/24/25 at 10:51. Electronically submitted by Sarahi Pineda ([email or web address]). IMELDA LACKEY MD Jun 24, 2025 10:45
[2025-06-24] MEDS ORDERED: AMOX500T3 PO (11:32)
[2025-06-24 12:15] VITALS: BP 122/62; PULSE 78; RESP 20; TEMP 98.6; O2SAT 98
== END 2025-06-24 12:17 | disposition home or self-care (01) ==
LOC: ER 10:32
DX: J02.9 Acute pharyngitis, unspecified (principal); J45.909 Unspecified asthma, uncomplicated; Z79.899 Other long term (current) drug therapy; Z88.6 Allergy status to analgesic agent